=== PATIENT | male | born 1965 | race Caucasian/White ===

== ENCOUNTER 2021-02-19 01:19 | Emergency (ER) | payer OTHER, SELFPAY ==
[2021-02-19 01:37] VITALS: BP 177/94; PULSE 60; RESP 16; TEMP 36.7; O2SAT 98; BMI 22.5
[2021-02-19 01:49] LABS: Bacteria Urine None Seen; Culture Indicated Urine Cult Not Indicated; RBC Urine 1-5/HPF (0-5/HPF); Squamous Epithelial Cell Urine 0-1 /HPF (0-5/HPF); WBC Urine None Seen (0-5/HPF)
--- NOTE | 2021-02-19 02:01 | ED_ITS ---
HPI - Male Genitourinary General Chief complaint: Urogenital-Male Stated complaint: kidney pain x20min Time Seen by Provider: 02/19/21 01:37 Source: patient Mode of arrival: Ambulatory Limitations: no limitations History of Present Illness HPI Narrative: This is a 55-year-old male comes emergency department with com plaint of right flank pain sudden onset this evening. Patient states he got up to use the bathroom he started having sort of a twinge in his right flank that became increasingly painful. Peaked and he had some nausea and vomiting and sort of improved but did not resolve in his PT again. Patient states he has not any fevers or chills. No chest pain or shortness of breath. No cold cough or congestion. He has not had any hematuria, dysuria, frequency or discharge that he has noted. He has had normal bowel movements with no black or bloody stools. He denies any anterior abdominal pain. He takes medication for GERD, he was taking medication for dyslipidemia statin but states it worsened his GERD so he has not been taking that regularly. He has had a tonsillectomy but denies any other prior surgeries. He is allergic to Vibramycin and erythromycin but denies any other allergies. No tobacco, alcohol or illicit. He and his are visiting from [place], [place] through the weekend whole helping family here move into their new house. Related Data Previous Rx's Medication Instructions Recorded oxycodone 5 mg tablet 5 mg PO QID PRN #10 tab 02/19/21 tamsulosin 0.4 mg capsule (Flomax) 0.4 mg PO DAILY #7 cap 02/19/21 Allergies Allergy/AdvReac Type Severity Reaction Status Date / Time doxycycline [From Vibramycin] Allergy Hives Verified 02/19/21 01:45 erythromycin base Allergy Hives Verified 02/19/21 01:45 Review of Systems Review of Systems ROS Unobtainable: All systems reviewed & are unremarkable except as noted in HPI and below Patient History Social History Smoking Status: Never smoker Smoking Status: Never smoker alcohol intake frequency: 0-2 drinks per day Substance Use Type: does not use Exam Narrative Exam Narrative: GENERAL: Alert and oriented x three, male in moderate distress. HEENT: Head normocephalic, atraumatic, EOMI, pupils reactive, face symmetric, moist mucous membranes NECK: Supple, full range of motion CARDIOVASCULAR: Regular rate and rhythm without murmurs, rubs or gallops. RESPIRATORY: Breath sounds equal bilaterally, no wheezes rales or rhonchi. ABDOMEN: Soft, nontender. Normoactive bowel sounds all 4 quadrants. No guarding or rebound, rigidity, no mass, no bruit or pulsatile mass. : No CVA tenderness EXTREMITIES: Normal range of motion. Neurovascularly intact NEUROLOGICAL: Cranial nerves II through XII grossly intact. Moving all extr emities SKIN: Warm, dry, no petechiae, no rashes or lesions. Initial Vital Signs Initial Vital Signs: Vital Signs Temperature 98.1 F 02/19/21 01:37 Pulse Rate 60 02/19/21 01:37 Respiratory Rate 16 02/19/21 01:37 Blood Pressure 177/94 H 02/19/21 01:37 Pulse Oximetry 98 02/19/21 01:37 Course Orders Ordered: ED Orders 02/19/21 01:30 Urine Microscopic Stat 02/19/21 01:50 Complete Blood Count AUTO DIFF Stat Comprehensive Metabolic Panel Stat 02/19/21 02:15 CT kidney ureter bladder (KUB) Stat Discontinued Medications Sodium Chloride (Normal Saline 0.9%) 1,000 mls @ 1,000 mls/hr IV BOLUS ONE Stop: 02/19/21 03:50 Last Infusion: 02/19/21 04:04 Dose: 0 mls/hr Documented by: Admin: 02/19/21 02:58 Dose: 1,000 mls/hr Documented by: THERESA Ketorolac Tromethamine (Ketorolac 30 Mg/Ml Vial) 30 mg IV NOW ONE Stop: 02/19/21 01:38 Last Admin: 02/19/21 02:05 Dose: 30 mg Documented by: THERESA Morphine Sulfate (Morphine 4 Mg/Ml Inj) 4 mg IV NOW ONE Stop: 02/19/21 02:20 Last Admin: 02/19/21 02:57 Dose: 4 mg Documented by: THERESA Ondansetron HCl (Ondansetron 4 Mg/2 Ml Inj) 4 mg IV NOW ONE Stop: 02/19/21 02:20 Last Admin: 02/19/21 02:53 Dose: 4 mg Documented by: THERESA Oxycodone/Acetaminophen (Oxycodone/Apap 5/325 Prepack) 1 bottle [facility] Stop: 02/19/21 03:52 Last Admin: 02/19/21 04:04 Dose: 1 bottle Documented by: RAY Reevaluation(s) Reevaluation #1: Patient had a mild improvement with Toradol. Continue to be quite painful for about another 45 minutes to hour and was eventually had a significant flare in pain and was given Zofran and morphine. Reevaluation #2: Patient is a much more comfortable after Zofran and morphine. Initially deferred any additional pain medication. Patient has 2 mm stone with some mild hydro, no changes to renal function. Patient's pain controlled at this time with no signs of infection. He and his both feel comfortable returning home. Patient given dose of Flomax, return precautions and discussed today's findings. Time: 03:53 Vital Signs Vital signs: Vital Signs - 8 hr 02/19/21 01:37 02/19/21 04:04 Temperature 98.1 F Pulse Rate 60 90 Respiratory Rate 16 Blood Pressure 177/94 H 127/74 Pulse Oximetry 98 97 MDM - Male Genitourinary Lab Data Result diagrams: 02/19/21 01:50 02/19/21 01:50 Labs: Lab Results 02/19/21 02/19/21 02/19/21 Range/Units 01:30 01:50 01:50 WBC 7.6 (4.5-11.0) X10^3/uL RBC 5.16 (4.5-5.9) X10^6/uL Hgb 14.6 (13.5-17.5) g/dL Hct 44.3 (41-53) % MCV 85.9 (80-100) fL MCH 28.3 (26-34) PG MCHC 33.0 (30-36) % RDW 13.9 (11.6-14.8) % Plt Count 178 (150-400) X10^3/uL Neut % (Auto) 70.7 (50-75) % Lymph % (Auto) 20.6 L (25-40) % Spink % (Auto) 6.4 (3-14) % Eos % (Auto) 1.4 L (2-4) % Baso % (Auto) 0.9 (0-2) % Neut # (Auto) 5400 (9741-8656) /uL Lymph # (Auto) 1600 (4337-5715) /uL Spink # (Auto) 500 (0-900) /uL Eos # (Auto) 100 (0-450) /uL Baso # (Auto) 100 (0-100) /uL Sodium 138 (137-145) mmol/L Potassium 3.8 (3.4-5.1) mmol/L Chloride 101 (98-107) mmol/L Carbon Dioxide 29 (22-32) mmol/L BUN 25 H (9-20) mg/dL Creatinine 1.52 H (0.66-1.25) mg/dL Estimated GFR 47.5 L (>60) mL/min BUN/Creatinine Ratio 16.4 (6-22) Glucose 217 H (70-100) mg/dL Calcium 9.5 (8.4-10.2) mg/dL Total Bilirubin 1.0 (0.2-1.3) mg/dL AST 29 (17-59) IU/L ALT 38 (<50) IU/L Alkaline Phosphatase 80 (38-126) U/L Total Protein 7.0 (6.3-8.2) g/dL Albumin 4.4 (3.5-5.0) g/dL Globulin 2.6 (1.7-4.1) g/dL Albumin/Globulin Ratio 1.7 (1.0-2.8) Urine RBC 1-5/hpf (0-5/HPF) Urine WBC None seen (0-5/HPF) Ur Squamous Epith Cells 0-1 /hpf (0-5/HPF) Urine Bacteria None seen (None) Ur Culture Indicated? Cult not indicated Urine Dip Bedside Urine Glucose Negative Bedside Urine Bilirubin - Negative Bedside Urine Ketone - Negative Urine Specific Capulin 1.015 Bedside Urine Occult Blood +/- Bedside Urine pH 6.5 Bedside Urine Protein +/- 15 Bedside Urine Urobilinogen - Negative Bedside Urine Nitrite - Negative Bedside Urine Leukocytes - Negative Esterase Imaging Data CT scan - abdomen/pelvis: Radiologist's Impression: Right obstructive uropathy secondary to 2 mm distal ureter calculus just proximal to the UVJ. Patient has mild right hydro, hydroureter, and perinephric stranding. 2.2 cm left renal cyst. 1.6 cm prefer a heavily calcified hyperdense lesion probably cyst right lobe liver. MDM Narrative Medical decision making narrative: This is a 55-year-old male with acute onset right flank pain with hematuria, patient had minimal improvement with Toradol. He is much more improved after Zofran and morphine his pain controlled. Patient's CT shows 2 mm stone with some mild hydro. Urine is negative for any signs of infection. Patient was given Flomax, short prepack for overnight and a prescription for pain medication. Patient does not live locally but was given local referral but was asked to return if rapidly worsening for unable to control his symptoms. Strainer and speciemen cup were also provided. Discharge Plan Departure Patient Disposition: Home Clinical Impression: Kidney stone on right side, Liver cyst, Cholelithiasis Instructions: DI for Kidney Stones Activity Restrictions/Additional Instructions: Your CT imaging shows a 2mm kidney stone, you have some mild hydro but no changes to your renal function today. Your urine does not show any signs of infection. Follow-up with your physician. If your still having some mild symptoms they may refer you to urology. You may strain your urine to see if he catch the stone in your physician can send this for analysis. Take Flomax once daily until completely gone. Tonight if your pain begins to return take 1-2 tablets of the Percocet every 6 hours as needed for pain. Afterwards you may take ibuprofen up to 800 mg every 8 hours and/or Tylenol up to a 1000 mg every 8 hours as needed. If adequate take narcotic pain medication as prescribed. Maximum dose of Tylenol in 24 hours is 3000 mg. This medication can make you sleepy do not drive, perform hazardous activities or make any major decisions while taking it. This medication will make you constipated please take a stool softener once to twice daily until stools are soft and regular. Prescription sent to [facility] Please return for fevers, rapidly worsening abdominal, back or flank pain, passing out, persistent vomiting, signs of dehydration or if you are unable to urinate. Prescriptions: New oxycodone 5 mg tablet 5 mg PO QID PRN (Reason: pain) Qty: 10 RF: 0 tamsulosin [Flomax] 0.4 mg capsule 0.4 mg PO DAILY Qty: 7 RF: 0 Referrals: Eze Burk MD [Physician] -
[2021-02-19 02:04] LABS: Add Manual Diff / Slide Review NO; Basophils Absolute Auto 100 /uL (0-100); Basophils Percent Auto 0.9 % (0-2); Eosinophils Absolute Auto 100 /uL (0-450); Eosinophils Percent Auto 1.4 % (2-4); Hematocrit 44.3 % (41-53); Hemoglobin 14.6 g/dL (13.5-17.5); Lymphocytes Absolute Auto 1600 /uL (1100-4500); Lymphocytes Percent Auto 20.6 % (25-40); Mean Corpuscular Hemoglobin 28.3 PG (26-34); Mean Corpuscular Volume 85.9 fL (80-100); Monocytes Absolute Auto 500 /uL (0-900); Monocytes Percent Auto 6.4 % (3-14); Neutrophils Absolute Auto 5400 /uL (1500-7000); Neutrophils Percent Auto 70.7 % (50-75); Platelet Count 178 X10^3/uL (150-400); Red Blood Cell Count 5.16 X10^6/uL (4.5-5.9); Red Cell Distribution Width 13.9 % (11.6-14.8); White Blood Cell Count 7.6 X10^3/uL (4.5-11.0)
[2021-02-19] MEDS: KETOROLAC 30 MG/ML VIAL IV (02:05)
[2021-02-19 02:11] LABS: Alanine Aminotransferase 38 IU/L (<50); Albumin 4.4 g/dL (3.5-5.0); Albumin Globulin Ratio 1.7 (1.0-2.8); Alkaline Phosphatase 80 U/L (38-126); Aspartate Aminotransferase 29 IU/L (17-59); BUN Creatinine Ratio 16.4 (6-22); Blood Urea Nitrogen 25 mg/dL (9-20); Calcium 9.5 mg/dL (8.4-10.2); Carbon Dioxide 29 mmol/L (22-32); Chloride 101 mmol/L (98-107); Estimated Glomerular Filt Rate 47.5 mL/min (>60); Globulin 2.6 g/dL (1.7-4.1); Glucose 217 mg/dL (70-100); HEMOLYSIS < 15 (0-50); Potassium 3.8 mmol/L (3.4-5.1); Sodium 138 mmol/L (137-145)
--- NOTE | 2021-02-19 02:15 | DI.CT.S_ITS ---
PROCEDURE: CT KIDNEY URETER BLADDER (KUB) INDICATIONS: right flank pain TECHNIQUE: Axial sections were acquired from the lung bases to the pubic symphysis. Coronal and sagittal reformats were performed. For radiation dose reduction, the following was used: automated exposure control, adjustment of mA and/or kV according to patient size. COMPARISON: None. FINDINGS: Image quality: Excellent. Lung bases: 3 millimeter right middle lobe pulmonary nodule. Lung bases are otherwise clear. Heart/Mediastinum: Small hiatal hernia. Mild mild fluid within the distal esophagus with mild circumferential wall thickening. URINARY: Kidneys/Ureters: Inflammation noted adjacent to the right ureter and right kidney. There is mild hydroureteronephrosis. 2-3 millimeter calcification noted just proximal to the right UVJ. Fluid density cystic lesion within the inferior pole of the left kidney. This is consistent with a simple cyst. No hydronephrosis. Ureters normal in course and caliber. Bladder: Minimally distended limiting evaluation. No stones or definite wall thickening. ABDOMEN: Liver: Peripherally calcified likely cystic lesion within the right hepatic lobe measuring 1.6 centimeters in diameter. Additional subcentimeter hypodensities too small to further characterize but statistically represent simple cysts. Gallbladder: Multiple radiolucent gallstones. Gallbladder is otherwise normal. Biliary ducts: Unremarkable. Pancreas: Fatty atrophy otherwise unremarkable. Spleen: Unremarkable. Adrenal Glands: Unremarkable. Stomach and Bowel: Stomach and small bowel are unremarkable. Appendix is normal. Mild some moderate stool burden. Questionable wall thickening of the descending/sigmoid colon with submucosal hypoattenuation. Scattered diverticula. No evidence of diverticulitis. Peritoneum: No abnormal intraperitoneal fluid. No free air. Ventral Wall: Prior umbilical hernia repair. Abdominal Nodes: No enlarged retroperitoneal or mesenteric lymph nodes. Vessels: Aorta and inferior vena cava are normal in size. PELVIS: Pelvic Organs: Mild prostatomegaly Pelvic Nodes: Unremarkable. Miscellaneous: Bilateral fat containing inguinal hernias. High Bones: Age-appropriate degenerative changes. No acute osseous abnormality. IMPRESSION: Right obstructive uropathy with 2-3 millimeter distal right ureteral calculus just proximal to the UVJ. Cholelithiasis. Questionable wall thickening of the left sigmoid colon with submucosal hypoattenuation which may be result of chronic inflammation. Recommend correlation with up-to-date screening colonoscopy. Small hiatal hernia with fluid within the distal esophagus with mild circumferential wall thickening. Recommend correlation for GERD. Consider endoscopy if clinically warranted. Cholelithiasis. Prostatomegaly. Diverticulosis. 3 millimeter right middle lobe pulmonary nodule. If patient is high risk for lung malignancy consider repeat chest CT in approximately 1 year. Additional findings as above. No significant discrepancy with preliminary report. Dictated by: Yusuf Olson D.O. on 02/19/2021 at 6:35 Approved by: Yusuf Olson D.O. on 02/19/2021 at 6:48
[2021-02-19] MEDS: ONDANSETRON 4 MG/2 ML INJ IV (02:53)
[2021-02-19] MEDS: MORPHINE 4 MG/ML INJ IV (02:57)
[2021-02-19] MEDS: SODIUM CHLORIDE 0.9% 1,000 ML 1000 ML IV (02:58)
[2021-02-19 04:04] VITALS: BP 127/74; PULSE 90; O2SAT 97
[2021-02-19] MEDS: OXYCODONE/APAP 5/325 PREPACK 1 BOTTLE MISC (04:04)
== END 2021-02-19 04:12 | disposition home or self-care (01) ==
PROVIDERS: Emergency Provider Emergency Medicine
DX: N20.0 Calculus of kidney (principal); K76.89 Other specified diseases of liver; R31.9 Hematuria, unspecified; K80.20 Calculus of gallbladder without cholecystitis without obstruction; R11.2 Nausea with vomiting, unspecified
CPT/HCPCS: 74176; 80053; 81003; 81015; 85025; 96361; 96374; 96375; 99284; J1885; J2270; J2405